=== PATIENT | male | born 1990 | race Caucasian/White ===

== ENCOUNTER 2021-08-04 12:30 | Emergency (ER) | payer MEDICAID, SELFPAY ==
[2021-08-04 12:31] VITALS: BP 121/53; PULSE 70; RESP 18; TEMP 36.8; O2SAT 100; BMI 21.9
[2021-08-04 12:37] VITALS: BMI 26.6
--- NOTE | 2021-08-04 12:38 | XR_ITS ---
FINAL REPORT CLINICAL HISTORY: fall, shoulder FINDINGS: RIGHT SHOULDER 3 views were obtained. There is no acute fracture. There is elevation of the distal clavicle consistent with moderate acromioclavicular separation. There is no soft tissue abnormality. IMPRESSION: Moderate acromioclavicular separation. Reviewed, Interpreted and Dictated by Derrick Guillen III, MD Transcribed by Shamika Cox Authenticated by Derrick Guillen III, MD on 08/04/2021 01:16:01 PM [facility]
--- NOTE | 2021-08-04 12:38 | XR_ITS ---
FINAL REPORT CLINICAL HISTORY: fall, pain FINDINGS: RIGHT HUMERUS 2 views were obtained. There is no acute fracture or dislocation. The joint spaces are intact. There is no soft tissue abnormality. IMPRESSION: No acute bony abnormality. Reviewed, Interpreted and Dictated by Derrick Guillen III, MD Transcribed by Shamika Cox Authenticated by Derrick Guillen III, MD on 08/04/2021 01:16:00 PM [facility]
--- NOTE | 2021-08-04 12:38 | XR_ITS ---
FINAL REPORT CLINICAL HISTORY: fall, shoulder FINDINGS: RIGHT CLAVICLE 2 views were obtained. There is no acute fracture. There is elevation of the distal clavicle consistent with moderate acromioclavicular separation. There is no soft tissue abnormality. IMPRESSION: Moderate acromioclavicular separation. Reviewed, Interpreted and Dictated by Derrick Guillen III, MD Transcribed by Shamika Cox Authenticated by Derrick Guillen III, MD on 08/04/2021 01:16:01 PM [facility]
--- NOTE | 2021-08-04 12:39 | PC.NURSE ---
notified rad of xray orders, spoke with ovidio
--- NOTE | 2021-08-04 12:44 | PC.NURSE ---
rad at BS
--- NOTE | 2021-08-04 14:54 | HMH.EDGENADL ---
ED Disposition Clinical Impression: AC separation, type 3 Qualifiers: Encounter type: initial encounter Laterality: right Qualified Code(s): S43.101A - Unspecified dislocation of right acromioclavicular joint, initial encounter Disposition: Home, Self-Care Condition on Discharge: Good Additional Instructions: Please follow-up with the orthopedic doctor, Dr. Hines in 1 week. Address: [address] [place] [address] [place] [address] You may take Tylenol and ibuprofen in combination every 6 hours and keep your arm immobilized in the sling for comfort. You may also use ice 20 minutes at a time 4 times per day. If you develop any worsening symptoms, please return to the emergency department for reassessment. Referrals: Provider,MD Yamila [Primary Care Provider] - Azael Hines MD [Staff Physician] - - Critical Care Critical Care Time: No Attestation: On 08/04/21, the high probability of a clinically significant, sudden or life threatening deterioration of the following system(s) required my full and direct attention, intervention and personal management. The time I documented below is in addition to time spent performing reported procedures but includes the following listed in this critical care notation. Medical Decision Making - Medical Records Medical records reviewed: Yes: I reviewed the patient's medical records. - Herber Inquiry Pt receiving controlled substance: No Vital Signs: 08/04/21 12:31 Temperature 98.2 F Temperature Source Oral Pulse Rate [Left Radial] 70 Respiratory Rate 18 Blood Pressure [Left Arm] 121/53 L Blood Pressure Mean [Left Arm] 75 Blood Pressure Source [Left Arm] Automatic Cuff Blood Pressure Position [Left Arm] Sitting 02 Sat by Pulse Oximetry 100 Oxygen Delivery Method Room Air - Lab Data Lab results reviewed: Yes: I reviewed the patient's lab results. Orders (Tests/Meds): ED MEDICATIONS Discontinued Medications Generic Name Dose Route Start Last Admin Trade Name Freq PRN Reason Stop Dose Admin Ketorolac Tromethamine 15 mg 08/04/21 14:07 08/04/21 14:29 Ketorolac 30mg/Ml Vial IM 08/04/21 14:08 15 mg ONCE ONE Administration Oxycodone HCl 10 mg 08/04/21 14:07 08/04/21 14:29 Oxycodone 5mg Immediate Release Tablet PO 08/04/21 14:08 10 mg ONCE ONE Administration Medical Decision Narrative: Rubén is a 31yo male ending with a chief complaint of right shoulder pain after a fall from standing. Patient is alert, oriented and able to answer questions appropriately. He is clinically sober. Patient was evaluated x-rays of the left clavicle, shoulder and humerus. X-rays are negative for acute fracture or dislocation. Patient has AC separation, moderate. Given that he is neurovascularly intact, I believe patient is appropriate for outpatient follow-up with orthopedics within 1 week. Given on return precautions, counseled on supportive care and discharged in stable condition. General Adult HPI - General Chief complaint: Extremity Injury, Upper Stated complaint: right shoulder pain Time Seen by Provider: 08/04/21 12:30 Mode of Arrival: EMS Limitations: No Limitations Description of Symptoms (Recalled from ER Triage Doc. by RN): Pt c/o R shoulder, clavicle and humerus pain. Pt reports he was running from his brother, went to dive over a hill and hit a rock. Pt denies numbness,tingling or decreased sensation. Cap refill wnl, pulses positive and equal. - History of Present Illness HPI narrative: Rubén is a 31-year-old male presenting with a chief complaint of severe right shoulder pain after falling down hill and landing on his shoulder. He denies hitting his head, losing consciousness, neck pain. Patient is able to move his fingers but has pain moving his arm. Denies abrasions, lacerations or fractures. Has a history of IV drug use. No blood thinner use. Ambulatory after fall. - Related Data Allergies Allergy/AdvReac Type
--- NOTE | 2021-08-04 15:18 | CT_ITS ---
FINAL REPORT CLINICAL HISTORY: neck pain FINDINGS: Axial CT images of the cervical spine were obtained without contrast. Sagittal and coronal reformatted images were also obtained. This study was performed with techniques to keep radiation doses as low as reasonably achievable (ALARA). Individualized dose reduction techniques using automated exposure control or adjustment of mA and/or kV according to the patient's size were employed. There is no evidence of fracture or dislocation. The bony alignment is normal. There is mild degenerative change with small uncovertebral osteophyte at C3-4 and C4-5. There is no evidence of canal stenosis. No paraspinous soft tissue abnormality is seen. Limited images of the upper thorax are unremarkable. C2-3: There is no significant canal stenosis or neural foraminal narrowing. C3-4: Bilateral uncovertebral osteophytes are present with moderate bilateral neural foraminal narrowing. C4-5: Uncovertebral osteophytes are present with mild right moderate left neural foraminal narrowing. C5-6: An annular bulge is present. There is no significant canal stenosis or neural foraminal narrowing. C6-7: An annular bulge is present. There is no significant canal stenosis or neural foraminal narrowing. C7-T1: There is no significant canal stenosis or neural foraminal narrowing. IMPRESSION: Multilevel degenerative disc disease with no fracture or acute bony abnormality identified. Reviewed, Interpreted and Dictated by Derrick Guillen III, MD Transcribed by Mikayla Myers Authenticated by Derrick Guillen III, MD on 08/04/2021 04:24:19 PM [facility]
[2021-08-04 16:11] VITALS: BP 117/39; PULSE 65; RESP 16; O2SAT 98
[2021-08-04 17:09] VITALS: BP 136/62; PULSE 51; RESP 16; TEMP 36.8; O2SAT 98
== END 2021-08-04 17:09 | disposition home or self-care (01) ==
PROVIDERS: Emergency Provider Emergency Medicine
DX: S43.101A Unspecified dislocation of right acromioclavicular joint, initial encounter (principal); W18.09XA Striking against other object with subsequent fall, initial encounter
CPT/HCPCS: 72125; 73000; 73030; 73060; 96372; 99283